=== PATIENT | male | born 1975 ===

== ENCOUNTER 2024-02-22 05:39 | Emergency (ER) | payer MEDICARE ==
[~2024-02-22] VITALS: Ht 180.3 cm; Wt 86.2 kg
[2024-02-22] MEDS ORDERED: ASPI-495 PO (06:02)
[2024-02-22] MEDS ORDERED: CARV25TA2 PO (06:02)
[2024-02-22] MEDS ORDERED: LOPE2CAP40 GT (06:02)
[2024-02-22] MEDS ORDERED: NITR0.4T SL (06:02)
[2024-02-22] MEDS ORDERED: GLIP10TA11 PO (06:02)
[2024-02-22] MEDS ORDERED: CLOP75TA33 PO (06:02)
[2024-02-22] MEDS ORDERED: SODI650T PO (06:02)
[2024-02-22] MEDS ORDERED: DAPA10TA PO (06:02)
[2024-02-22] MEDS ORDERED: DIPH25TA25 PO (06:02)
[2024-02-22] MEDS ORDERED: CALC0.253 PO (06:02)
[2024-02-22] MEDS ORDERED: CLON-418 PO (06:02)
[2024-02-22] MEDS ORDERED: ACET-3117 PO (06:02)
[2024-02-22] MEDS ORDERED: LORAZEPAM 2 MG/1 ML VIAL IV ONE (06:30)
[2024-02-22 06:44] LABS: BASOPHILS # (AUTO) 0.1 K/UL (0.0-0.2); BASOPHILS % (AUTO) 0.8 % (0.0-2.0); EOSINOPHILS # (AUTO) 0.3 K/uL (0.0-0.7); EOSINOPHILS % (AUTO) 2.5 % (0.0-7.0); HEMATOCRIT 40.8 % (36.7-47.1); HEMOGLOBIN 13.9 g/dL (12.5-16.3); LYMPHOCYTES # (AUTO) 0.9 K/uL (0.8-4.8); LYMPHOCYTES % (AUTO) 8.2 % (20.5-51.5); MEAN CORPUSCULAR HEMOGLOBIN 29.4 uug (23.8-33.4); MEAN CORPUSCULAR HGB CONC 34 g/dL (32.5-36.3); MEAN CORPUSCULAR VOLUME 86.5 fL (73.0-96.2); MONOCYTES % (AUTO) 9.4 % (0.0-11.0); NEUTROPHILS # (AUTO) 8.3 K/uL (1.8-8.9); NEUTROPHILS % (AUTO) 79.1 % (38.5-71.5); PLATELET COUNT (AUTO) 308 K/uL (152-348); RED BLOOD CELL COUNT(AUTO) 4.72 MIL/uL (4.06-5.63); RED CELL DISTRIBUTION WIDTH 15.6 % (12.1-16.2); WHITE BLOOD COUNT (AUTO) 10.4 K/uL (3.6-10.2)
[2024-02-22 06:45] LABS: DIFFERENTIAL COMMENT 1
[2024-02-22 06:50] LABS: CALCIUM 8.5 mg/dL (8.5-10.1); POTASSIUM 4.2 mmol/L (3.5-5.1)
[2024-02-22 06:54] LABS: CREATININE 8.9 mg/dL (0.6-1.3)
[2024-02-22 06:55] LABS: PHOSPHOROUS 6.6 mg/dL (2.5-4.9)
[2024-02-22 06:56] LABS: MAGNESIUM 2.6 mg/dL (1.8-2.4)
[2024-02-22] MEDS ORDERED: CARVEDILOL 25 MG TABLET ONE (09:29)
[2024-02-22] MEDS ORDERED: CLONIDINE HCL 0.2 MG TABLET ONE (09:29)
[2024-02-22] MEDS: CLONIDINE HCL 0.2 MG TABLET PO ONE (09:35)
[2024-02-22] MEDS: CARVEDILOL 3.125 MG TABLET PO ONE (09:36)
[2024-02-22 09:48] VITALS: BP 193/88; TEMP 98.7; O2SAT 98
== END 2024-02-22 09:45 | disposition home or self-care (01) ==
LOC: ER 05:44
DX: E11.649 Type 2 diabetes mellitus with hypoglycemia without coma (principal); E11.22 Type 2 diabetes mellitus with diabetic chronic kidney disease; N18.6 End stage renal disease; T50.995A Adverse effect of other drugs, medicaments and biological substances, initial encounter; R53.1 Weakness; R05.9 Cough, unspecified; R09.89 Other specified symptoms and signs involving the circulatory and respiratory systems; Z79.4 Long term (current) use of insulin; Z88.7 Allergy status to serum and vaccine; Z99.2 Dependence on renal dialysis; Y92.89 Other specified places as the place of occurrence of the external cause
CPT/HCPCS: 36415; 71045; 83735; 84100; 84484; 85025; A4606; A4663